=== PATIENT | female | born 1995 | race African-American/Black ===

== ENCOUNTER 2017-11-14 15:26 | Emergency (ER) | payer OTHER, SELFPAY ==
[2017-11-14 15:28] VITALS: BP 126/81; PULSE 92; RESP 16; TEMP 36.8; O2SAT 99; BMI 25.9
--- NOTE | 2017-11-14 15:48 | ED.VISSUMM ---
- ER Visit Summary Date of Service: 11/14/17 Chief Complaint: My muscles are sore History of Present Illness: The patient is a 22 F past medical or surgical history. Patient is concerned because recently she has had multiple flea bites from peds from her roommate. She states today all of her muscles feels sore and tight when she tries to walk. She denies any other symptoms. No nausea, vomiting, diarrhea, fever. No melena no fever. Her last menstrual period was 2-3 weeks ago. She has never been . Physical Examination: Appearing young female. Vital signs stable afebrile. HEENT exam normal. Neck nontender no lymphadenopathy. Lungs clear to auscultation bilaterally. Heart regular rate and rhythm no murmur. Abdomen soft nontender. She is moving all 4 extremities. Neurovascularly intact. Calves are nontender without edema or cords. She has no muscle weakness. She is equal symmetrical motor strength in both upper and lower extremities. Neurologically she is awake and alert. Skin is unremarkable other than a few very minor appearing fleabites on her left foot. There is no cellulitis. Test Results: CBC shows a mild anemia the hemoglobin 0.8 no prior labs available for comparison. Chemistries normal normal gap and creatinine. Emergency Department Course and Treatment: Patient has a normal exam. We will check screening labs. Treatment Plan: Repeat exam doing well at 1744. Patient be discharged home. Disposition: Discharge Impression: Myalgias This note was generated with [employer] dictation software. It may contain incorrect words, spelling, and punctuation that were not noted in review of the chart prior to signing ED Disposition - Plan for ED Patient: Chief Complaint: General Illness
--- NOTE | 2017-11-14 15:56 | ED.DCSUM_ITS ---
- ER Visit Summary Date of Service: 11/14/17 Chief Complaint: My muscles are sore History of Present Illness: The patient is a 22 F past medical or surgical history. Patient is concerned because recently she has had multiple flea bites from peds from her roommate. She states today all of her muscles feels sore and tight when she tries to walk. She denies any other symptoms. No nausea, vomiting, diarrhea, fever. No melena no fever. Her last menstrual period was 2 -3 weeks ago. She has never been . Physical Examination: Appearing young female. Vital signs stable afebrile. HEENT exam normal. Neck nontender no lymphadenopathy. Lungs clear to auscultation bilaterally. Heart regular rate and rhythm no murmur. Abdomen soft nontender. She is moving all 4 extremities. Neurovascularly intact. Calves are nontender without edema or cords. She has no muscle weakness. She is equal symmetrical motor strength in both upper and lower extremities. Neurologically she is awake and alert. Skin is unremarkable other than a few very minor appearing fleabites on her left foot. There is no cellulitis. Test Results: CBC shows a mild anemia the hemoglobin 0.8 no prior labs available for comparison. Chemistries normal normal gap and creatinine. Emergency Department Course and Treatment: Patient has a normal exam. We will check screening labs. Treatment Plan: Repeat exam doing well at 1744. Patient be discharged home. Disposition: Discharge Impression: Myalgias This note was generated with [employer] dictation software. It may contain incorrect words, spelling, and punctuation that were not noted in review of the chart prior to signing ED Disposition - Plan for ED Patient: Chief Complaint: General Illness
[2017-11-14 16:11] LABS: Absolute Lymphocyte Count 1.69 X10^3/ul (0.83-4.51); Absolute Neutrophil Count 2.2 X10^3/uL (2.0-7.7); Basophil# 0.01 X10^3/uL; Basophil% 0.2 % (0-1); Eosinophil# 0.06 X10^3/uL; Eosinophils% 1.4 % (0-5); Hematocrit 36.5 % (37-47); Hemoglobin 11.8 g/dl (12.0-15.0); Lymphocyte # 1.69 X10^3/ul (4.0); Lymphocyte % 38.9 % (19-41); Mean Corp Hgb Conc 32.3 g/gl (32-36); Mean Corpuscular Hgb 27.1 pg (27.0-32.0); Mean Corpuscular Volume 83.9 fL (81-99); Mean Platelet Vol. 10.9 fl (6.2-12.0); Monocyte# 0.38 X10^3/uL; Monocyte% 8.8 % (0-10); Neutrophil % 50.7 % (47-70); POSITIVE COUNT NO; POSITIVE DIFFERENTIAL NO; POSITIVE MORPHOLOGY NO; Platelet Count 166 K/mm3 (150-450); RBC Distribution Width CV 13.1 % (11.6-14.6); RBC Distribution Width SD 40.1 fl (35.1-43.9); Red Blood Count 4.35 M/mm3 (4.2-5.4); White Blood Count 4.3 K/mm3 (4.4-11.0)
[2017-11-14 17:25] LABS: BUN 15 mg/dL (7-18); Creatinine, Serum 0.89 mg/dL (0.55-1.02); EST Glomerular Filtration Rate 85 mL/min (>60); Estimated Creatinine Clearance 94.39 ml/min; Glucose 87 mg/dL (74-106)
[2017-11-14 17:26] LABS: Anion Gap 6 (5-15); BUN/Creat Ratio 16.8 RATIO (10-20); Calcium,Total 8.9 mg/dL (8.5-10.1); Chloride 106 mmol/L (98-107); Est Glom Filt Rate - Afr Amer 103 mL/min (>60); Potassium 4.5 mmol/L (3.5-5.1); Sodium Level 138 mmol/L (136-145)
--- NOTE | 2017-11-14 17:45 | ED.DEP ---
ED Disposition - Plan for ED Patient: Disposition: Home or Assisted Living Chief Complaint: General Illness Instructions: ED Muscle Aching Referrals: Bakari Flores MD [STAFF PHYSICIAN] - 3-5 Days if not improving Additional Instructions: Fluids. Tylenol and Motrin for pain. Return if feeling worse.
[2017-11-14 18:20] VITALS: BP 113/74; PULSE 72; RESP 16; TEMP 36.4; O2SAT 100
== END 2017-11-14 18:21 | disposition home or self-care (01) ==
PROVIDERS: Emergency Provider Emergency Medicine
DX: M79.1 Myalgia (principal); D64.9 Anemia, unspecified
CPT/HCPCS: 80048; 85025; 99283